=== PATIENT | female | born 1960 | race Caucasian/White ===

== ENCOUNTER 2017-08-13 18:50 | Inpatient (IN) | payer OTHER ==
[~2017-08-13] VITALS: Ht 170.2 cm; Wt 85.0 kg
[2017-08-13 19:01] VITALS: BP 146/87; PULSE 91; RESP 16; TEMP 98.6; O2SAT 98
--- NOTE | 2017-08-13 19:08 | PD ---
HPI Chief Complaint: Injury Time Seen by Provider: 19:00 Travel History International Travel<30 days: No Contact w/Intl Traveler<30days: No Traveled to known affect area: No History of Present Illness HPI 57-year-old female presents to the ED via EMS for evaluation of 10/10 left ankle pain after fall down one step at home today. Described as constant/ throbbing. Alleviated by morphine. Patient states that she simply misstepped. She has not been ambulatory since the accident. She endorses previous sprains of both ankles in the past. She states that she had breakfast at 10: 30. She is unsure if she had a snack after that but states that she is definitely not eaten since 2 PM. Patient is followed by Dr. Rodriguez in [facility]. She endorses a few episodes of esophageal spasm recently and has an upcoming endoscopy scheduled. [facility] Social History Tobacco Use: No Allergies-Medications (Allergen,Severity, Reaction): Coded Allergies: No Known Drug Allergies (Verified Allergy, Unknown, 08/13/17) Reported Meds & Prescriptions Reported Meds & Active Scripts Active Reported Synthroid (Levothyroxine Sodium) 125 Mcg Tab 125 Mcg PO DAILY Flexeril (Cyclobenzaprine HCl) 10 Mg Tab 10 Mg PO TID PRN Review of Systems Except as stated in HPI: all other systems reviewed are Neg Physical Exam Narrative GENERAL: Well-nourished, well-developed pleasant white female in no acute distress. SKIN: Focused skin assessment warm/dry. HEAD: Normocephalic. EYES: No scleral icterus. No injection or drainage. NECK: Supple, trachea midline. No JVD or lymphadenopathy. CARDIOVASCULAR: Regular rate and rhythm without murmurs, gallops, or rubs. RESPIRATORY: Breath sounds clear and equal bilaterally. No accessory muscle use. GASTROINTESTINAL: Abdomen soft, non-tender, nondistended. MUSCULOSKELETAL: No cyanosis, or edema. FOCUSED LEFT LOWER EXTREMITY EXAM: 2+ radial pulse. Patient is able to wiggle her toes. Sensation intact to light touch distally. There is visible deformity at the ankle joint. Cardboard splint is maintained pending x-rays. FOCUSED RIGHT LOWER EXTREMITY EXAM: 2+ radial pulse. Patient is able to wiggle toes. Flexion and extension of the ankle elicits pain in the top of the foot. Cap refill less than 2 seconds. Sensation intact to light touch distally. BACK: Nontender without obvious deformity. No CVA tenderness. Data Data Last Documented VS Vital Signs Date Time Temp Pulse Resp B/P (MAP) Pulse Ox O2 Delivery O2 Flow Rate FiO2 08/13/17 19:01 98.6 91 16 146/87 (106) 98 Orders Orders Ice/Cold Pack (08/13/17 19:02) Foot, Complete ([id number]) (08/13/17 19:02) Ice/Cold Pack (08/13/17 19:02) Iv Access Insert/Monitor (08/13/17 19:02) Ankle, Limited (Ap&Lat) (08/13/17 19:02) Complete Blood Count With Diff (08/13/17 19:54) Comprehensive Metabolic Panel (08/13/17 19:54) Urinalysis - C+S If Indicated (08/13/17 19:54) Ecg Monitoring (08/13/17 19:54) Oximetry (08/13/17 19:54) Morphine Inj (Morphine Inj) (08/13/17 20:00) Sodium Chloride 0.9% Flush (Ns Flush) (08/13/17 20:00) Electrocardiogram (08/13/17 19:54) Coag Profile (08/13/17 19:54) Splinting (08/13/17 ) Ondansetron Inj (Zofran Inj) (08/13/17 20:00) Admit Order (Ed Use Only) (08/13/17 20:12) Labs Laboratory Tests Test 08/13/17 20:00 White Blood Count 12.3 TH/MM3 Red Blood Count 4.36 MIL/MM3 Hemoglobin 13.9 GM/DL Hematocrit 41.1 % Mean Corpuscular Volume 94.3 FL Mean Corpuscular Hemoglobin 32.0 PG Mean Corpuscular Hemoglobin Concent 33.9 % Red Cell Distribution Width 13.2 % Platelet Count 314 TH/MM3 Mean Platelet Volume 7.5 FL Neutrophils (%) (Auto) 75.9 % Lymphocytes (%) (Auto) 17.1 % Monocytes (%) (Auto) 4.5 % Eosinophils (%) (Auto) 2.0 % Basophils (%) (Auto) 0.5 % Neutrophils # (Auto) 9.3 TH/MM3 Lymphocytes # (Auto) 2.1 TH/MM3 Monocytes # (Auto) 0.5 TH/MM3 Eosinophils # (Auto) 0.2 TH/MM3 Basophils # (Auto) 0.1 TH/MM3 CBC Comment DIFF FINAL Differential Comment Prothrombin Time 10.4 SEC Prothromb Time International Ratio 0.9 RATIO Activated Partial Thromboplast Time 24.7 SEC Blood Urea Nitrogen 14 MG/DL Creatinine 0.84 MG/DL Random Glucose 102 MG/DL Total Protein 7.2 GM/DL Albumin 3.8 GM/DL Calcium Level 8.3 MG/DL Alkaline Phosphatase 105 U/L Aspartate Amino Transf (AST/SGOT) 20 U/L Alanine Aminotransferase (ALT/SGPT) 23 U/L Total Bilirubin 0.5 MG/DL Sodium Level 139 MEQ/L Potassium Level 3.8 MEQ/L Chloride Level 106 MEQ/L Carbon Dioxide Level 23.0 MEQ/L Anion Gap 10 MEQ/L Estimat Glomerular Filtration Rate 70 ML/MIN MDM Medical Decision Making Medical Screen Exam Complete: Yes Emergency Medical Condition: Yes Differential Diagnosis Fracture versus dislocation versus contusion versus musculoskeletal pain versus other Narrative Course 57-year-old female presents to the ED via EMS for evaluation of 10/10 left ankle pain after fall down one step at home today. Described as constant/ throbbing. Alleviated by morphine. Patient states that she simply misstepped. She has not been ambulatory since the accident. She states that she had breakfast at 10:30. Patient is followed by Dr. Rodriguez in [facility]. She endorses a few episodes of esophageal spasm recently and has an upcoming endoscopy scheduled. She's never had any problems with anesthesia. Patient's hypertensive on presentation. Physical exam reveals a pleasant white female in no acute distress. She has a palpable DP pulse in the left leg and is able to wiggle the toes. There is visible deformity of the leg and it is in a cardboard splint. We'll leave this in place pending x-rays. IV was established. Patient was administered 4 mg morphine, 4 mg Zofran IV. Left ankle x-ray: Bimalleolar unstable left ankle fracture per my read. I spoke with Dr. Feliz by phone who plans surgery tomorrow. CBC, CMP, UA, coags, CXR, EKG ordered and pending. The orthotech was called to splint the ankle. I discussed the results of the workup with the patient who is agreeable to admission and evaluation by the orthopedist. I spoke with Dr. Desai who agrees to accept the patient to the medicine service. Please see orthopedic and medicine for disposition. Taylor Monzon Aug 13, 2017 19:08
[2017-08-13] MEDS ORDERED: LEVO.125 PO (19:12)
[2017-08-13] MEDS ORDERED: CYCL10TA PO (19:12)
[2017-08-13] MEDS ORDERED: ONDANSETRON HCL 4 MG/2 ML VIAL IV PUSH ONE (20:00)
[2017-08-13] MEDS ORDERED: SODIUM CHLORIDE 0.9% FLUSH 10 ML FLUSH IV FLUSH PRN ×2 (20:00→20:45)
[2017-08-13] MEDS ORDERED: MORPHINE SULFATE 4 MG/ML INJ IV PUSH ONE (20:00)
[2017-08-13 20:14] LABS: AUTOMATED NEUTROPHIL # 9.3 TH/MM3 (1.8-7.7); BASOPHIL # 0.1 TH/MM3 (0-0.2); BASOPHIL % 0.5 % (0.0-2.0); EOSINOPHIL # 0.2 TH/MM3 (0-0.4); HEMATOCRIT 41.1 % (35.0-46.0); HEMO FLAGS DIFF FINAL; LYMPH % 17.1 % (9.0-44.0); LYMPHOCYTE # 2.1 TH/MM3 (1.0-4.8); MEAN CELL VOLUME 94.3 FL (80.0-100.0); MEAN CORPUSCULAR HGB CONC 33.9 % (32.0-36.0); MONO % 4.5 % (0.0-8.0); NEUT % 75.9 % (16.0-70.0); PLATELET COUNT 314 TH/MM3 (150-450); RED BLOOD COUNT 4.36 MIL/MM3 (4.00-5.30); RED CELL DISTRIBUTION WIDTH 13.2 % (11.6-17.2); WHITE BLOOD COUNT 12.3 TH/MM3 (4.0-11.0)
[2017-08-13 20:22] LABS: ALT (GPT) 23 U/L (10-53); ANION GAP 10 MEQ/L (5-15); AST (GOT) 20 U/L (15-37); BLOOD UREA NITROGEN 14 MG/DL (7-18); CHLORIDE 106 MEQ/L (98-107); GLOMERULAR FILTRATION RATE 70 ML/MIN (>89); POTASSIUM 3.8 MEQ/L (3.5-5.1); SODIUM (NA) 139 MEQ/L (136-145)
[2017-08-13 20:25] LABS: ALKALINE PHOSPHATASE 105 U/L (45-117); TOTAL BILIRUBIN ADULT 0.5 MG/DL (0.2-1.0)
--- NOTE | 2017-08-13 20:28 | RADRPT ---
EXAM DATE/TIME: 08/13/2017 19:13 [facility] COMPARISON: No previous studies available for comparison. INDICATIONS : Left ankle pain after missing a step. MEDICAL HISTORY : None. SURGICAL HISTORY : None. ENCOUNTER: Initial ACUITY: 1 day PAIN SCORE: 5/10 LOCATION: Left anterior ankle. FINDINGS: There is fracture at the base of the medial malleolus and at the distal fibula at the lateral malleol us. It does appear the distal fibular fragment and the talus are mildly laterally subluxed in relatio nship to the distal tibia. CONCLUSION: Medial and lateral malleoli fractures as described above. Mina Burns MD on August 13, 2017 at 20:26 Board Certified Radiologist. This report was verified electronically.
[2017-08-13 20:34] LABS: APTT (PATIENT) 24.7 SEC (24.3-30.1); INTERNATIONAL NORMALIZED RATIO 0.9 RATIO; PROTHROMBIN TIME - PATIENT 10.4 SEC (9.8-11.6)
--- NOTE | 2017-08-13 20:38 | RADRPT ---
EXAM DATE/TIME: 08/13/2017 19:19 [facility] COMPARISON: No previous studies available for comparison. INDICATIONS : Right foot pain after missing a step. MEDICAL HISTORY : None. SURGICAL HISTORY : None. ENCOUNTER: Initial ACUITY: 1 day PAIN SCORE: 5/10 LOCATION: Right foot, dorsal surface. FINDINGS: Three view examination of the right foot demonstrates no soft tissue swelling, dislocation, or fractu re. The tarsal bones appear intact. The interphalangeal and metatarsophalangeal joints are intact. The calcaneus is intact. There is a small calcaneal spur at the plantar aponeurosis attachment sit e. Bony mineralization is normal. CONCLUSION: No acute disease. Mina Burns MD on August 13, 2017 at 20:36 Board Certified Radiologist. This report was verified electronically.
[2017-08-13] MEDS ORDERED: ACETAMINOPHEN 325 MG TAB PO PRN (20:45)
[2017-08-13] MEDS ORDERED: CYCLOBENZAPRINE HCL 10 MG TAB PO PRN (20:45)
[2017-08-13] MEDS ORDERED: LACTULOSE SYRUP 20 GM/30 ML CUP PO PRN (20:45)
[2017-08-13] MEDS ORDERED: NALOXONE HCL 0.4 MG/ML AMP IV PUSH PRN (20:45)
[2017-08-13] MEDS ORDERED: BISACODYL 10 MG SUPP RECTAL PRN (20:45)
[2017-08-13] MEDS ORDERED: SENNOSIDES 8.6 MG TAB PO PRN (20:45)
[2017-08-13] MEDS ORDERED: PANTOPRAZOLE SOD 40 MG DELAYED RELEASE TAB PO ONE (21:15)
[2017-08-13] MEDS ORDERED: RESP: ALBUTEROL CONC 2.5 MG/0.5 ML NEB NEB PRN (21:15)
[2017-08-13] MEDS ORDERED: DOCUSATE SODIUM 100 MG CAP PO ONE (21:30)
[2017-08-13 21:35] VITALS: BP 130/76
[2017-08-13 21:37] VITALS: BP 133/80; PULSE 85; RESP 18; TEMP 97.6; O2SAT 98
[2017-08-13] MEDS ORDERED: ACYC200C66 PO (21:37)
--- NOTE | 2017-08-13 21:47 | HHI.HP ---
HPI Service [facility] Primary Care Physician Unknown Admission Diagnosis left ankle fracture Diagnoses: (1) Closed fracture of malleolus of left ankle (2) Hypothyroidism (3) Chronic back pain (4) GERD (gastroesophageal reflux disease) (5) History of DVT (deep vein thrombosis) Chief Complaint: Left ankle pain following a fall at home Travel History International Travel<30 Days: No Contact w/Intl Traveler <30 Da: No Traveled to Known Affected Are: No History of Present Illness Mrs. Ny is a very pleasant female with a history of postoperative lower extremity DVT, hypothyroidism, chronic lung disease (sounds like mild reactive airway disease vs mild interstitial lung disease), gastroesophageal reflux disease with possible stricture versus esophageal spasm being worked up as an outpatient (EGD to be done within next two weeks) who presented to the emergency room following a fall at home with medial and lateral left malleoli fractures identified in the emergency department (xray personally reviewed and agree with radiologist findings). She is being admitted for orthopedic surgical repair and [facility] were consulted to manage other medical conditions prior to surgery in the morning. Patient states that she was at home and was walking down a step and missed her footing and fell with resulting severe left ankle pain, the dictations, and inability to bear weight. Her pain is currently described as sharp and worse with movement. It is rated 7 out of 10 but she is currently undergoing left lower extremity splinting during my visit. She does report pain relief with when necessary morphine. Denies any recent fever, chills, chest pain, shortness of breath, cough, cold symptoms, nausea, vomiting, or diarrhea. She does report chronic constipation and states that she also hurt her right foot during a fall. X-ray of the right foot is negative. Review of Systems Except as stated in HPI: all other systems reviewed are Neg Past Family Social History Past Medical History Left lower extremity postoperative DVT with 3 months of Coumadin therapy Hypothyroidism Chronic back pain GERD with esophageal stricture vs esophageal spasm pending EGD within the next 2 weeks outpatient Lifelong chronic lung disease - patient states she uses an inhaler as needed for shortness of breath/wheezing for "weak lungs" - from history sounds like interstitial lung disease versus reactive airway disease Left collarbone fracture Chronic constipation Uterine Fibroids s/p hysterectomy (did not have oophorectomy) Multiple episodes of pneumonia . Past Surgical History Multiple liposuction surgeries Tummy tuck Breast reduction Laparoscopic hysterectomy . Reported Medications Synthroid (Levothyroxine Sodium) 125 Mcg PO DAILY Flexeril (Cyclobenzaprine HCl) 10 Mg PO TID PRN back pain Albuterol Nebulizer 2 inhalations q4h PRN sob/wheezing Nexium 40 mg p.o. qd Allergies: Coded Allergies: No Known Drug Allergies (Verified Allergy, Unknown, 08/13/17) Active Ordered Medications Current Medications Morphine Sulfate (Morphine Inj) 4 mg ONCE ONCE IV PUSH ; Start 08/13/17 at 20: 00; Stop 08/13/17 at 20:01; Status DC Sodium Chloride (NS Flush) 2 ml UNSCH PRN IV FLUSH FLUSH AFTER USING IV ACCESS ; Start 08/13/17 at 20:00; Stop 08/13/17 at 21:10; Status DC Ondansetron HCl (Zofran Inj) 4 mg ONCE ONCE IV PUSH ; Start 08/13/17 at 20:00 ; Stop 08/13/17 at 20:01; Status DC Sodium Chloride (NS Flush) 2 ml UNSCH PRN IV FLUSH FLUSH AFTER USING IV ACCESS ; Start 08/13/17 at 20:45 Sodium Chloride (NS Flush) 2 ml BID IV FLUSH ; Start 08/13/17 at 21:00 Acetaminophen (Tylenol) 650 mg Q4H PRN PO TEMP > 100.4; Start 08/13/17 at 20: 45 Naloxone HCl (Narcan Inj) 0.4 mg UNSCH PRN IV PUSH SEE LABEL COMMENTS; Start 08/13/17 at 20:45 Magnesium Hydroxide (Milk Of Magnesia Liq) 30 ml Q12H PRN PO Mild constipation ; Start 08/13/17 at 20:45 Sennosides (Senokot) 17.2 mg Q12H PRN PO Moderate constipation; Start at 20:45 Bisacodyl (Dulcolax Supp) 10 mg DAILY PRN RECTAL SEVERE CONSITIPATION; Start 08/13/17 at 20:45 Lactulose (Lactulose Liq) 30 ml DAILY PRN PO SEVERE CONSITIPATION; Start 08/13 at 20:45 Morphine Sulfate (Morphine Inj) 3 mg Q3H PRN IV PUSH pain > 5; Start 08/13/17 at 20:45 Cyclobenzaprine HCl (Flexeril) 10 mg TID PRN PO BACK PAIN; Start 08/13/17 at 20:45 Levothyroxine Sodium (Synthroid) 125 mcg DAILY@0600 PO ; Start 08/14/17 at 06: 00 Pantoprazole Sodium (Protonix) 40 mg ONCE ONCE PO ; Start 08/13/17 at 21:15; Stop 08/13/17 at 21:16; Status UNV Pantoprazole Sodium (Protonix) 40 mg DAILY PO ; Start 08/14/17 at 09:00; Status UNV Albuterol Sulfate (Albuterol Concentrated Neb) 2.5 mg Q2HR NEB PRN NEB wheezing /shortness of breath; Start 08/13/17 at 21:15; Status UNV . Family History Father from myocardial infarction at age 59, first CABG age 56 Mother from congestive heart failure age mid 80s No family history of anesthesia reactions She had an uncle who from complications related to a left leg DVT . Social History Tobacco: Never smoked Alcohol: Socially drinks alcohol; denies daily use Illicit Drugs: Denies every using . Physical Exam Vital Signs Vital Signs Date Time Temp Pulse Resp B/P (MAP) Pulse Ox O2 Delivery O2 Flow Rate FiO2 08/13/17 19:01 98.6 91 16 146/87 (106) 98 Physical Exam GENERAL: This is a very pleasant, well-nourished, well-developed patient, in no apparent distress. SKIN: No rashes, ecchymoses or lesions. Cool and dry. HEAD: Atraumatic. Normocephalic. EYES: No scleral icterus. No injection or drainage. ENT: Nose without bleeding, purulent drainage. NECK: Trachea midline. No JVD or lymphadenopathy. CARDIOVASCULAR: Regular rate and rhythm without murmurs, gallops, or rubs. RESPIRATORY: Clear to auscultation. Breath sounds equal bilaterally. No wheezes , rales, or rhonchi. GASTROINTESTINAL: Abdomen soft, non-tender, nondistended. No guarding. MUSCULOSKELETAL: Extremities without clubbing, cyanosis. No calf tenderness. Left ankle painful with movement. Patient is able to wiggle her toes, capillary refill is less than 3 seconds, and sensation is intact to toes. NEUROLOGICAL: Awake and alert. Motor and sensory grossly within normal limits. Normal speech. . Laboratory Laboratory Tests Test 08/13/17 20:00 White Blood Count 12.3 Red Blood Count 4.36 Hemoglobin 13.9 Hematocrit 41.1 Mean Corpuscular Volume 94.3 Mean Corpuscular Hemoglobin 32.0 Mean Corpuscular Hemoglobin Concent 33.9 Red Cell Distribution Width 13.2 Platelet Count 314 Mean Platelet Volume 7.5 Neutrophils (%) (Auto) 75.9 Lymphocytes (%) (Auto) 17.1 Monocytes (%) (Auto) 4.5 Eosinophils (%) (Auto) 2.0 Basophils (%) (Auto) 0.5 Neutrophils # (Auto) 9.3 Lymphocytes # (Auto) 2.1 Monocytes # (Auto) 0.5 Eosinophils # (Auto) 0.2 Basophils # (Auto) 0.1 CBC Comment DIFF FINAL Differential Comment Prothrombin Time 10.4 Prothromb Time International Ratio 0.9 Activated Partial Thromboplast Time 24.7 Blood Urea Nitrogen 14 Creatinine 0.84 Random Glucose 102 Total Protein 7.2 Albumin 3.8 Calcium Level 8.3 Alkaline Phosphatase 105 Aspartate Amino Transf (AST/SGOT) 20 Alanine Aminotransferase (ALT/SGPT) 23 Total Bilirubin 0.5 Sodium Level 139 Potassium Level 3.8 Chloride Level 106 Carbon Dioxide Level 23.0 Anion Gap 10 Estimat Glomerular Filtration Rate 70 Result Diagram: 08/13/17199908/13/17 2000 Imaging Last Impressions Foot X-Ray 08/13/171901 Signed Impressions: Service Date/Time: Sunday, August 13, 2017 19:19 - CONCLUSION: No acute disease. Mina Burns MD Ankle X-Ray [id number]/13/171901 Signed Impressions: Service Date/Time: Sunday, August 13, 2017 19:13 - CONCLUSION: Medial and lateral malleoli fractures as described above. Mina Burns MD . Capemigdioi VTE Risk Assessment Eddii VTE Risk Assessment: Mod/High Risk (score >= 2) Caprini Risk Assessment Model Point Value = 1 Point Value = 2 Point Value = 3 Point Value = 5 Age 41-60 Minor surgery BMI > 25 kg/m2 Swollen legs Varicose veins or History of unexplained or recurrent spontaneous Oral contraceptives or hormone replacement Sepsis (< 1 month) Serious lung disease, including pneumonia (< 1 month) Abnormal pulmonary function Acute myocardial infarction Congestive heart failure (< 1 month) History of inflammatory bowel disease Medical patient at bed rest Age 61-74 Arthroscopic surgery Major open surgery (> 45 min) Laparoscopic surgery (> 45 min) Malignancy Confined to bed (> 72 hours) Immobilizing plaster cast Central venous access Age >= 75 History of VTE Family history of VTE Factor V Leiden Prothrombin [id number] Lupus anticoagulant Anticardiolipin antibodies Elevated serum homocysteine Heparin-induced thrombocytopenia Other congenital or acquired thrombophilia Stroke (< 1 month) Elective arthroplasty Hip, pelvis, or leg fracture Acute spinal cord injury (< 1 month) Prophylaxis Regimen Total Risk Factor Score Risk Level Prophylaxis Regimen 0-1 Low Early ambulation 2 Moderate Order ONE of the following: *Sequential Compression Device (SCD) *Heparin 5000 units SQ BID 3-4 Higher Order ONE of the following medications: *Heparin 5000 units SQ TID *Enoxaparin/Lovenox 40 mg SQ daily (WT < 150 kg, CrCl > 30 mL/min) *Enoxaparin/Lovenox 30 mg SQ daily (WT < 150 kg, CrCl > 10-29 mL/min) *Enoxaparin/Lovenox 30 mg SQ BID (WT < 150 kg, CrCl > 30 mL/min) AND/OR *Sequential Compression Device (SCD) 5 or more Highest Order ONE of the following medications: *Heparin 5000 units SQ TID (Preferred with Epidurals) *Enoxaparin/Lovenox 40 mg SQ daily (WT < 150 kg, CrCl > 30 mL/min) *Enoxaparin/Lovenox 30 mg SQ daily (WT < 150 kg, CrCl > 10-29 mL/min) *Enoxaparin/Lovenox 30 mg SQ BID (WT < 150 kg, CrCl > 30 mL/min) AND *Sequential Compression Device (SCD) Assessment and Plan Problem List: (1) Closed fracture of malleolus of left ankle ICD Code: S82.892A - Other fracture of left lower leg, initial encounter for closed fracture (2) Hypothyroidism ICD Code: E03.9 - Hypothyroidism, unspecified (3) GERD (gastroesophageal reflux disease) ICD Code: K21.9 - Gastro-esophageal reflux disease without esophagitis (4) Chronic back pain ICD Code: M54.9 - Dorsalgia, unspecified; G89.29 - Other chronic pain (5) History of DVT (deep vein thrombosis) ICD Code: Z86.718 - Personal history of other venous thrombosis and embolism Assessment and Plan Mrs. Ny is a very pleasant female with a history of postoperative lower extremity DVT, hypothyroidism, chronic lung disease (sounds like mild reactive airway disease vs mild interstitial lung disease), gastroesophageal reflux disease with possible stricture versus esophageal spasm being worked up as an outpatient (EGD to be done within next two weeks) who presented to the emergency room following a fall at home with medial and lateral left malleoli fractures identified in the emergency department (xray personally reviewed and agree with radiologist findings). She is being admitted for orthopedic surgical repair and [facility] hospitalists were consulted to manage other medical conditions prior to surgery in the morning. Left ankle fracture - Left ankle x-ray shows medial and lateral left malleoli fractures identified in the emergency department (xray personally reviewed and agree with radiologist findings) - Orthopedic surgery consulted - Morphine 3 mg IV every 3 hours as needed for pain greater than 5 Hypothyroidism - Home Synthroid restarted Chronic back pain - Home PRN Flexeril restarted Chronic constipation - Bowel regimen has been ordered - Colace 100 mg BID Chronic lung disease - mild reactive airway disease vs mild interstitial lung disease - uses albuterol inhaler PRN at home but hasn't used in a long time but is prone to developing pneumonia - will add PRN albuterol nebulizer to be used for wheezing/SOB - instructed patient she will need to use the incentive spirometer post- operatively religiously - she is in agreement GERD - Protonix 40 mg p.o. qd (in lieu of home Nexium) DVT prophylaxis - patient with a history of post op LLE DVT (took Coumadin for 3 months for this - 20 years ago) - per orthopedics post-op, SCDs/TEDs to nonoperative leg for now Discussed Condition With Dr. Desai, JUDE, and patient . Physician Certification 2 Midnight Certification Type: Admission for Inpatient Services Order for Inpatient Services The services are ordered in accordance with Medicare regulations or non- Medicare payer requirements, as applicable. In the case of services not specified as inpatient-only, they are appropriately provided as inpatient services in accordance with the 2-midnight benchmark. Estimated LOS (days): 2 days is the estimated time the patient will need to remain in the hospital, assuming treatment plan goals are met and no additional complications. Post-Hospital Plan: Home Franca Cid Aug 13, 2017 21:47
[2017-08-13] MEDS ORDERED: METOPROLOL TARTRATE 25 MG TAB PO PRN (22:00)
[2017-08-13] MEDS ORDERED: CHLORHEXIDINE GLUCONATE 2 % 1 PACK (2 CLOTHS) TOPICAL PRN (22:00)
[2017-08-13] MEDS ORDERED: POVIDONE IODINE 5% (ANTISEPSIS KIT) 4 APPLICATIONS EACH NARE PRN (22:00)
[2017-08-13] MEDS ORDERED: LACTATED RINGER'S 1000 ML IV PRN (22:00)
[2017-08-13] MEDS ORDERED: SODIUM CHLORID 0.9% 500 ML IV PRN (22:00)
[2017-08-13] MEDS ORDERED: ACYCLOVIR 200 MG CAP PO ONE (22:15)
[2017-08-13] MEDS: SODIUM CHLORIDE 0.9% FLUSH 10 ML FLUSH IV FLUSH SCH (23:19)
[2017-08-13 23:20] VITALS: BP 136/84; PULSE 86; RESP 18; TEMP 98.1; O2SAT 99
[2017-08-13] MEDS: MORPHINE SULFATE 2 MG/ML INJ IV PUSH PRN (23:21)
[2017-08-14] MEDS: MORPHINE SULFATE 2 MG/ML INJ IV PUSH PRN ×3 (02:41→09:46)
[2017-08-14] MEDS: LEVOTHYROXINE SODIUM 125 MCG TAB PO SCH (05:45)
[2017-08-14] MEDS: ACYCLOVIR 200 MG CAP PO SCH ×5 (05:45→23:28)
[2017-08-14 05:48] VITALS: BP 97/66; PULSE 82; RESP 17; TEMP 97.2; O2SAT 98
[2017-08-14] MEDS ORDERED: ACYCLOVIR 200 MG CAP PO SCH (06:00)
[2017-08-14 08:00] VITALS: BP 112/71; PULSE 91; RESP 17; TEMP 96.8; O2SAT 95
[2017-08-14] MEDS: SODIUM CHLORIDE 0.9% FLUSH 10 ML FLUSH IV FLUSH SCH (08:43)
[2017-08-14] MEDS: PANTOPRAZOLE SOD 40 MG DELAYED RELEASE TAB PO SCH (08:44)
[2017-08-14 08:49] LABS: AUTOMATED NEUTROPHIL # 6.2 TH/MM3 (1.8-7.7); BASOPHIL % 0.4 % (0.0-2.0); EOSINOPHIL # 0.3 TH/MM3 (0-0.4); EOSINOPHIL % 3.7 % (0.0-4.0); HEMATOCRIT 38.1 % (35.0-46.0); HEMO FLAGS DIFF FINAL; LYMPH % 23.2 % (9.0-44.0); LYMPHOCYTE # 2.2 TH/MM3 (1.0-4.8); MEAN CORPUSCULAR HEMOGLOBIN 32.8 PG (27.0-34.0); MEAN CORPUSCULAR HGB CONC 34.6 % (32.0-36.0); MONO % 6.6 % (0.0-8.0); NEUT % 66.1 % (16.0-70.0); PLATELET COUNT 274 TH/MM3 (150-450); RED BLOOD COUNT 4.01 MIL/MM3 (4.00-5.30); WHITE BLOOD COUNT 9.3 TH/MM3 (4.0-11.0)
[2017-08-14] MEDS ORDERED: DOCUSATE SODIUM 100 MG CAP PO SCH (09:00)
[2017-08-14] MEDS ORDERED: INFLUENZA VIRUS VACCINE (QUADRIVALENT) 0.5 ML SYR IM ONE (09:00)
[2017-08-14] MEDS ORDERED: PNEUMOCOCCAL POLYVALENT INJ 25 MCG/0.5 ML SYR IM ONE (09:00)
[2017-08-14 09:14] LABS: BICARBONATE 25.7 MEQ/L (21.0-32.0); POTASSIUM 3.8 MEQ/L (3.5-5.1)
[2017-08-14] MEDS ORDERED: GENTAMICIN SULFATE 80 MG/2 ML VIAL ONE (10:10)
[2017-08-14] MEDS ORDERED: APREPITANT 40 MG CAP ONE (10:33)
[2017-08-14] MEDS ORDERED: ACETAMINOPHEN 1000 MG/100 ML 100 ML IV ONE (10:37)
[2017-08-14] MEDS ORDERED: FAMOTIDINE 20 MG/2 ML VIAL ONE (10:37)
[2017-08-14] MEDS ORDERED: ceFAZolin 2 GM PREMIX 50 ML ONE (10:51)
[2017-08-14] MEDS ORDERED: PROPOFOL 200 MG/20 ML AMP IV ONE (12:00)
[2017-08-14] MEDS ORDERED: ONDANSETRON HCL 4 MG/2 ML VIAL IV PUSH ONE (12:00)
[2017-08-14] MEDS ORDERED: DEXAMETHASONE SOD PHOS 4 MG/ML VIAL IV ONE (12:00)
[2017-08-14] MEDS ORDERED: NEOSTIGMINE 3 MG/3 ML SYR IV ONE (12:00)
[2017-08-14] MEDS ORDERED: MIDAZOLAM HCL 2 MG/2 ML VIAL IV ONE (12:00)
[2017-08-14] MEDS ORDERED: PHENYLEPH/NS 1000 MCG/10 ML SYR IV ONE (12:00)
[2017-08-14] MEDS ORDERED: LIDOCAINE HCL 1% PF 5 ML SYRINGE OTHER ONE (12:00)
[2017-08-14] MEDS ORDERED: ROCURONIUM INJ 50 MG/5 ML SYRINGE IV PUSH ONE (12:00)
[2017-08-14] MEDS ORDERED: GLYCOPYRROLATE 1 MG/5 ML SYRINGE IV PUSH ONE (12:00)
[2017-08-14] MEDS: LACTATED RINGER'S 1000 ML INJ 1,000 ML IV SCH ×2 (12:02→12:30)
--- NOTE | 2017-08-14 12:07 | PD.CONS ---
HPI Service Orthopedic Surgeons Consult Requested By Reason for Consult Unstable left ankle fracture Primary Care Physician Unknown Admission Diagnosis left ankle fracture Diagnoses: (1) Closed fracture of malleolus of left ankle (2) Hypothyroidism (3) GERD (gastroesophageal reflux disease) (4) Chronic back pain (5) History of DVT (deep vein thrombosis) Chief Complaint: Left ankle pain History of Present Illness This patient is a 57-year-old female who missed a step at her home and had an injury to her left ankle. She indicated that she fell and had an obvious deformity of the left ankle. She pulled it in it relocated the ankle hearing a "crunching". She was unable to bear weight. She was brought to [facility] emergency room and evaluated and treated. She was admitted to the medical service and I have been asked see her in consultation regarding the injury to her left ankle Past Family Social History Past Medical History Left lower extremity postoperative DVT with 3 months of Coumadin therapy Hypothyroidism Chronic back pain GERD with esophageal stricture vs esophageal spasm pending EGD within the next 2 weeks outpatient Lifelong chronic lung disease - patient states she uses an inhaler as needed for shortness of breath/wheezing for "weak lungs" - from history sounds like interstitial lung disease versus reactive airway disease Left collarbone fracture Chronic constipation Uterine Fibroids s/p hysterectomy (did not have oophorectomy) Multiple episodes of pneumonia . Past Surgical History Multiple liposuction surgeries Tummy tuck Breast reduction Laparoscopic hysterectomy . Allergies: Coded Allergies: nickel (Verified Allergy, Severe, rash, 08/14/17) No Known Drug Allergies (Verified Allergy, Unknown, 08/13/17) Active Ordered Medications Current Medications Medications (Trade) Dose Ordered Sig/Bkaari Route Start Time Stop Time Status Last Admin (NS Flush) 2 ml UNSCH PRN IV FLUSH 08/13/17 20:45 (NS Flush) 2 ml BID IV FLUSH 08/13/17 21:00 08/14/17 08:43 (Tylenol) 650 mg Q4H PRN PO 08/13/17 20:45 (Narcan Inj) 0.4 mg UNSCH PRN IV PUSH 08/13/17 20:45 (Milk Of Magnesia Liq) 30 ml Q12H PRN PO 08/13/17 20:45 (Senokot) 17.2 mg Q12H PRN PO 08/13/17 20:45 (Dulcolax Supp) 10 mg DAILY PRN RECTAL 08/13/17 20:45 (Lactulose Liq) 30 ml DAILY PRN PO 08/13/17 20:45 (Morphine Inj) 3 mg Q3H PRN IV PUSH 08/13/17 20:45 08/14/17 09:46 (Flexeril) 10 mg TID PRN PO 08/13/17 20:45 (Synthroid) 125 mcg DAILY@0600 PO 08/14/17 06:00 08/14/17 05:45 (Protonix) 40 mg DAILY PO 08/14/17 09:00 (Albuterol Concentrated Neb) 2.5 mg Q2HR NEB PRN NEB 08/13/17 21:15 (Colace) 100 mg BID PO 08/14/17 09:00 Lactated Ringer's 1,000 ml @ 30 mls/hr Q24H PRN IV 08/13/17 22:00 08/16/17 21:59 Sodium Chloride 500 ml @ 30 mls/hr [id number] PRN IV 08/13/17 22:00 08/16/17 21:59 (Lopressor) 25 mg [employer]ING [employer]PERVISOR PRN PO 08/13/17 22:00 08/16/17 21:59 (Betadine 5% Antisepsis Kit) 1 applic [employer]ING SUPERVISOR PRN EACH NARE 08/13/17 22:00 08/16/17 21:59 (Chlorhexidine 2% Cloth) 3 pack [employer]PER[employer] PRN TOPICAL 08/13/17 22:00 08/16/17 21:59 (Zovirax) 200 mg 5 TIMES A DAY PO 08/14/17 06:00 08/14/17 05:45 (Flu (Quadrivalent) Vaccine Inj) 0.5 ml ONCE ONCE IM 08/15/17 09:00 08/15/17 09:01 (Pneumovax-23 Inj) 25 mcg ONCE ONCE IM 08/15/17 09:00 08/15/17 09:01 Reported Meds & Active Scripts Active Reported Acyclovir 200 Mg Cap 500 Mg PO 5 TIMES A DAY Synthroid (Levothyroxine Sodium) 125 Mcg Tab 125 Mcg PO DAILY Flexeril (Cyclobenzaprine HCl) 10 Mg Tab 10 Mg PO TID PRN Family History Father from myocardial infarction at age 59, first CABG age 56 Mother from congestive heart failure age mid 80s No family history of anesthesia reactions She had an uncle who from complications related to a left leg DVT . Social History Tobacco: Never smoked Alcohol: Socially drinks alcohol; denies daily use Illicit Drugs: Denies every using . Physical Exam Vital Signs Vital Signs Date Time Temp Pulse Resp B/P (MAP) Pulse Ox O2 Delivery O2 Flow Rate FiO2 08/14/17 10:00 16 08/14/17 08:48 Room Air 08/14/17 08:00 96.8 91 17 112/71 (85) 95 08/14/17 05:48 97.2 82 17 97/66 (76) 98 08/13/17 23:20 98.1 86 18 136/84 (101) 99 08/13/17 21:43 Room Air 08/13/17 21:37 97.6 85 18 133/80 (97) 98 08/13/17 21:35 80 16 130/76 (94) 98 08/13/17 19:01 98.6 91 16 146/87 (106) 98 Physical Exam She is lying in bed and fairly comfortable. HEENT: Normocephalic atraumatic pupils equal round reactive. NECK: Supple. No abnormal masses. Full range of motion. CHEST: Clear to auscultation with no rales or rhonchi's or wheezes. HEART: Regular rate and rhythm. No murmurs. ABDOMEN: Soft, nontender, no masses. Normal active bowel sounds. GENITOURINARY: Deferred MUSCULOSKELETAL: She is in a splint. She wiggles toes. No obvious swelling of the dorsum of the foot or toes. Sensation is normal. The refill satisfactory. Laboratory Laboratory Tests Test 08/13/17 20:00 08/14/17 07:40 White Blood Count 12.3 9.3 Red Blood Count 4.36 4.01 Hemoglobin 13.9 13.2 Hematocrit 41.1 38.1 Mean Corpuscular Volume 94.3 95.0 Mean Corpuscular Hemoglobin 32.0 32.8 Mean Corpuscular Hemoglobin Concent 33.9 34.6 Red Cell Distribution Width 13.2 13.0 Platelet Count 314 274 Mean Platelet Volume 7.5 7.5 Neutrophils (%) (Auto) 75.9 66.1 Lymphocytes (%) (Auto) 17.1 23.2 Monocytes (%) (Auto) 4.5 6.6 Eosinophils (%) (Auto) 2.0 3.7 Basophils (%) (Auto) 0.5 0.4 Neutrophils # (Auto) 9.3 6.2 Lymphocytes # (Auto) 2.1 2.2 Monocytes # (Auto) 0.5 0.6 Eosinophils # (Auto) 0.2 0.3 Basophils # (Auto) 0.1 0.0 CBC Comment DIFF FINAL DIFF FINAL Differential Comment Prothrombin Time 10.4 Prothromb Time International Ratio 0.9 Activated Partial Thromboplast Time 24.7 Blood Urea Nitrogen 14 11 Creatinine 0.84 0.75 Random Glucose 102 97 Total Protein 7.2 Albumin 3.8 Calcium Level 8.3 8.4 Alkaline Phosphatase 105 Aspartate Amino Transf (AST/SGOT) 20 Alanine Aminotransferase (ALT/SGPT) 23 Total Bilirubin 0.5 Sodium Level 139 138 Potassium Level 3.8 3.8 Chloride Level 106 104 Carbon Dioxide Level 23.0 25.7 Anion Gap 10 8 Estimat Glomerular Filtration Rate 70 80 Result Diagram: 08/14/17 0740 08/14/17 0740 Imaging Review of x-rays and review of the radiology interpretation shows evidence of an unstable left bimalleolar ankle fracture Assessment & Plan Assessment and Plan Bimalleolar left ankle fracture PLAN: Open treatment with fixation left ankle fracture with plates and screws. There is a remote possibility that she may need an external fixator if there is significant swelling. Consent: There are risks with this injury and surgery including infection bleeding loss of motion continued pain and need for further surgery neurologic or vascular injury. We plan on surgical treatment today Tyron Keyes MD Aug 14, 2017 12:07
--- NOTE | 2017-08-14 12:11 | PD.OP ---
cc: Tyron Keyes MD Operative Report Date of Surgery: Aug 14, 2017 Preoperative Diagnosis: Left ankle bimalleolar fracture Postoperative Diagnosis: Same. Significant fracture blisters Procedure: Closed reduction left ankle with placement of external fixator left ankle and foot Anesthesia: Gen. Surgeon: Tyron Keyes Brass Finisher(s): SANRDA Paulson Operation and Findings: EBL: Minimal cc INDICATION: Patient is a 57-year-old female who fell yesterday tripping over a step at her home. She has an unstable bimalleolar fracture. She presents for surgical treatment NOTE: Lisy Paulson PA-C was present for the entire surgical procedure as my engineering inspection assistant. In my medical opinion her skill and care was necessary for the proper management of this patient. PROCEDURE: The patient was brought to the operating room and anesthetized in the supine position. The splint was taken down over the left leg and she had a very large fracture blister anterior and lateral extending just above the ankle measuring approximately 12 x 4 cm. The ankle was very swollen. We visualized this under fluoroscopy. This is a very unstable fracture. This had the appearance of her fracture dislocation that had relocated. I spoke with the on the phone. He agreed to proceeding forward with external fixation as opposed internal fixation allowing this patient to heal her soft tissue envelope. I explained to the patient that the risks of infection and wound breakdown at this point outweigh the potential benefits of trying internal fixation early. He agreed to proceeding forward with external fixation and delayed internal fixation. A timeout was done. The left leg was scrubbed with alcohol followed by Hibiclens followed by ChloraPrep and draped sterilely. Antibiotics were given within 1 hour time window. Under fluoroscopy percutaneous incisions were made anteriorly. Using the Orthofix system, 2 bicortical pins were placed along the shaft of the tibia. Going from medial to lateral incision was made and soft tissue dissection was allowed for visualization of the calcaneus where a trans-calcaneal pin was placed in the proper location. A separate pin was placed to the proximal first metatarsal. This was then attached the proper clamps and rods. The fracture was brought into reduced position and held. The ankle was held at neutral. The wounds were irrigated. The pins were then covered with sterile dressing. The patient was awakened and taken to the recovery room in satisfactory condition. FINDINGS: This was an unstable ankle fracture dislocation. An external fixator was necessary in order to avoid comp location of wound dehiscence and infection. She will need delayed internal fixation probably in 7-14 days Tyron Keyes MD Aug 14, 2017 12:11
[2017-08-14] MEDS ORDERED: DO NOT ADM ANY ANTICOAGULANT DRUGS PRN (12:12)
[2017-08-14] MEDS ORDERED: HYDR-3516 PO (12:13)
[2017-08-14] MEDS ORDERED: ENOX40P SQ (12:13)
[2017-08-14] MEDS ORDERED: ONDANSETRON HCL 4 MG/2 ML VIAL IVP PRN (12:15)
[2017-08-14] MEDS ORDERED: NALOXONE HCL 0.4 MG/ML AMP IV PUSH PRN (12:15)
[2017-08-14] MEDS ORDERED: SODIUM CHLORIDE 0.9% FLUSH 5 ML FLUSH IVF PRN (12:15)
[2017-08-14] MEDS ORDERED: MORPHINE SULFATE 8 MG/ML INJ IV PUSH PRN (12:15)
[2017-08-14] MEDS ORDERED: MAGNESIUM HYDROXIDE SUSP 30 ML CUP PO PRN (12:15)
[2017-08-14] MEDS ORDERED: Post-op Orders (for Pharmacy) MISC XX ONE (12:15)
[2017-08-14] MEDS ORDERED: MORPHINE SULFATE 30 MG/30 ML PCA IV SCH (12:15)
[2017-08-14] MEDS ORDERED: diphenhydrAMINE HCL 25 MG CAP PO PRN (12:15)
[2017-08-14] MEDS ORDERED: ACETAMINOPHEN/HYDROcodone 325 MG/5 MG TAB PO PRN (12:15)
[2017-08-14] MEDS: CALCIUM/VITAMIN D 250 MG/125 U TAB PO SCH ×2 (13:00→17:23)
--- NOTE | 2017-08-14 13:17 | RADRPT ---
EXAM DATE/TIME: 08/14/2017 11:44 [place] COMPARISON: ANKLE LEFT LIMITED (AP&LAT), August 13, 2017, 19:13. INDICATIONS : Ex fix placement left ankle. MEDICAL HISTORY : Fractures left ankle. SURGICAL HISTORY : None. ENCOUNTER: Initial ACUITY: 1 day PAIN SCORE: Non-responsive. LOCATION: Left Ankle. FINDINGS: External fixation device is noted with screws located in the tibia and first metatarsal. Acute fractu res involving the distal tibia and fibula are again identified. CONCLUSION: Status post external fixation device placement which appears to be adequate in positi on for fixation of distal tibial and fibular fractures. Jerome Yang MD on August 14, 2017 at 13:12 Board Certified Radiologist. This report was verified electronically.
[2017-08-14] MEDS: PCA - TOTAL MG MORPHINE DELIVERED PER SHIFT SCH ×2 (13:27→22:00)
[2017-08-14 16:00] VITALS: BP 107/69; PULSE 91; RESP 18; TEMP 96.6; O2SAT 95
--- NOTE | 2017-08-14 16:09 | EKG ---
Date Performed: 08/13/2017 Time Performed: 20:32:55 PTAGE: 57 years EKG: Sinus rhythm WITH MARKED SINUS ARRHYTHMIA LOW QRS VOLTAGE IN PRECORDIAL LEADS INCOMPLETE RIGHT BUNDLE BRANCH BLOC K BORDERLINE ECG NO PREVIOUS TRACING DOCTOR: Tonia Lee Interpretating Date/Time 08/14/2017 16:05:47
[2017-08-14 17:03] VITALS: O2SAT 95
[2017-08-14 19:15] VITALS: BP 110/62; PULSE 89; RESP 18; TEMP 97.2; O2SAT 97
[2017-08-14] MEDS: SODIUM CHLORIDE 0.9% FLUSH 5 ML FLUSH IVF SCH (21:00)
[2017-08-14] MEDS: DOCUSATE SODIUM 50 MG/SENNA 8.6 MG TAB PO SCH (23:28)
[2017-08-14] MEDS ORDERED: ZOLPIDEM TARTRATE 5 MG TAB PO ONE ×2 (23:30)
[2017-08-14 23:32] VITALS: BP 92/60; PULSE 79; RESP 17; TEMP 96.8; O2SAT 94
[2017-08-15] MEDS: ENOXAPARIN SODIUM 40 MG/0.4 ML SYRINGE SQ SCH (00:13)
[2017-08-15 03:42] VITALS: BP 91/58; PULSE 77; RESP 17; TEMP 96.7; O2SAT 94
[2017-08-15] MEDS: PCA - TOTAL MG MORPHINE DELIVERED PER SHIFT SCH ×2 (06:00→12:56)
[2017-08-15] MEDS: ACYCLOVIR 200 MG CAP PO SCH ×5 (06:21→22:17)
[2017-08-15] MEDS: LEVOTHYROXINE SODIUM 125 MCG TAB PO SCH (06:21)
[2017-08-15 08:00] VITALS: BP 109/70; PULSE 72; RESP 18; TEMP 98.3; O2SAT 97
[2017-08-15] MEDS: LACTATED RINGER'S 1000 ML INJ 1,000 ML IV SCH ×2 (08:02→10:21)
--- NOTE | 2017-08-15 08:13 | PD.ORT.PN ---
Subjective Subjective Remarks No complaints. at bedside. Complains of right foot pain Objective Vitals Vital Signs Date Time Temp Pulse Resp B/P (MAP) Pulse Ox O2 Delivery O2 Flow Rate FiO2 08/15/17 03:42 96.7 77 17 91/58 (69) 94 08/14/17 23:32 96.8 79 17 92/60 (71) 94 08/14/17 19:15 97.2 89 18 110/62 (78) 97 08/14/17 17:03 95 Nasal Cannula 2.00 08/14/17 16:00 96.6 91 18 107/69 (82) 95 08/14/17 14:10 14 08/14/17 14:05 Room Air 08/14/17 13:15 87 14 122/84 (97) 96 Room Air 08/14/17 13:00 90 14 125/94 (104) 94 Room Air 08/14/17 12:45 79 14 115/76 (89) 95 Room Air 08/14/17 12:30 74 14 121/81 (94) 99 Simple Mask 8 08/14/17 12:15 97.8 82 14 108/74 (85) 99 Simple Mask 8 08/14/17 10:00 16 08/14/17 08:48 Room Air I/O 08/14/17 08/14/17 08/14/17 08/15/17 08/15/17 08/15/17 07:00 15:00 23:00 07:00 15:00 23:00 Intake Total 0 ml 1075 ml 865 ml 360 ml Output Total 10 ml Balance 0 ml 1065 ml 865 ml 360 ml Intake Oral 0 ml 360 ml 360 ml IV Total 1075 ml 505 ml Output Estimated Blood Loss 10 ml # Voids 2 4 2 # Bowel Movements 0 0 0 Result Diagram: 08/14/1740 08/14/17 0740 Objective Remarks Left ankle in external fixator. Minimal drainage. Sensation normal. Moderate swelling. Right foot. Mild discomfort. No swelling. X-ray right foot negative for fracture Assessment & Plan Assessment and Plan Bimalleolar left ankle fracture Contusion right foot. Surgery: Closed reduction, external fixator, left ankle PLAN: 's surgical stabilization delayed because of severe fracture blisters with swelling. External fixator in place. No obvious injury to the right foot with mild pain likely related to contusion/ strain. Ice and elevation. Discharge to home probably Friday. [place] for pain. Lovenox for 15 days. Return to the office in 10 days, x-ray on return and consider delayed stabilization at that time Tyron Keyes MD Aug 15, 2017 08:13
[2017-08-15] MEDS ORDERED: INFLUENZA VIRUS VACCINE (QUADRIVALENT) 0.5 ML SYR IM ONE (09:00)
[2017-08-15] MEDS ORDERED: PNEUMOCOCCAL POLYVALENT INJ 25 MCG/0.5 ML SYR IM ONE (09:00)
[2017-08-15] MEDS: SODIUM CHLORIDE 0.9% FLUSH 5 ML FLUSH IVF SCH (09:00)
--- NOTE | 2017-08-15 09:18 | HHI.PR ---
Subjective Remarks late note entry from 08/14/17 pt seen in the PACU post op stable , little sedated Objective Vitals Vital Signs Date Time Temp Pulse Resp B/P (MAP) Pulse Ox O2 Delivery O2 Flow Rate FiO2 08/15/17 03:42 96.7 77 17 91/58 (69) 94 08/14/17 23:32 96.8 79 17 92/60 (71) 94 08/14/17 19:15 97.2 89 18 110/62 (78) 97 08/14/17 17:03 95 Nasal Cannula 2.00 08/14/17 16:00 96.6 91 18 107/69 (82) 95 08/14/17 14:10 14 08/14/17 14:05 Room Air 08/14/17 13:15 87 14 122/84 (97) 96 Room Air 08/14/17 13:00 90 14 125/94 (104) 94 Room Air 08/14/17 12:45 79 14 115/76 (89) 95 Room Air 08/14/17 12:30 74 14 121/81 (94) 99 Simple Mask 8 08/14/17 12:15 97.8 82 14 108/74 (85) 99 Simple Mask 8 08/14/17 10:00 16 I/O 08/14/17 08/14/17 08/14/17 08/15/17 08/15/17 08/15/17 07:00 15:00 23:00 07:00 15:00 23:00 Intake Total 0 ml 1075 ml 865 ml 360 ml Output Total 10 ml Balance 0 ml 1065 ml 865 ml 360 ml Intake Oral 0 ml 360 ml 360 ml IV Total 1075 ml 505 ml Output Estimated Blood Loss 10 ml # Voids 2 4 2 # Bowel Movements 0 0 0 Result Diagram: 08/14/17 0740 08/14/17 0740 Objective Remarks GENERAL: This is a well-nourished, well-developed patient, in no apparent distress. SKIN: No rashes, warm and dry HEAD: Atraumatic. Normocephalic. EYES: Pupils equal round and reactive. ENT: Nose without bleeding, or drainage, Airway patent. NECK: Trachea midline. Supple CARDIOVASCULAR: Regular rate and rhythm without murmurs, gallops, or rubs. RESPIRATORY: Fair air entry bilaterally. No wheezes, rales, or rhonchi. GASTROINTESTINAL: Abdomen soft, non-tender, nondistended. Positive bowel sounds MUSCULOSKELETAL: Left ankle external fixator NEUROLOGICAL: Awake slightly sedated A/P Problem List: (1) Closed fracture of malleolus of left ankle ICD Code: S82.892A - Other fracture of left lower leg, initial encounter for closed fracture (2) Hypothyroidism ICD Code: E03.9 - Hypothyroidism, unspecified (3) GERD (gastroesophageal reflux disease) ICD Code: K21.9 - Gastro-esophageal reflux disease without esophagitis (4) Chronic back pain ICD Code: M54.9 - Dorsalgia, unspecified; G89.29 - Other chronic pain (5) History of DVT (deep vein thrombosis) ICD Code: Z86.718 - Personal history of other venous thrombosis and embolism Assessment and Plan Mrs. Ny is a very pleasant female with a history of postoperative lower extremity DVT, hypothyroidism, chronic lung disease (sounds like mild reactive airway disease vs mild interstitial lung disease), gastroesophageal reflux disease with possible stricture versus esophageal spasm being worked up as an outpatient (EGD to be done within next two weeks) who presented to the emergency room following a fall at home with medial and lateral left malleoli fractures identified in the emergency department (xray personally reviewed and agree with radiologist findings). She is being admitted for orthopedic surgical repair and [place] hospitalists were consulted to manage other medical conditions prior to surgery in the morning. Left ankle fracture - Left ankle x-ray shows medial and lateral left malleoli fractures identified in the emergency department (xray personally reviewed and agree with radiologist findings) - Orthopedic surgery consulted s/p surgical repair 08/14 - cont pain mangement Hypothyroidism - Home Synthroid restarted Chronic back pain - Home PRN Flexeril restarted Chronic constipation - Bowel regimen has been ordered - Colace 100 mg BID Chronic lung disease - mild reactive airway disease vs mild interstitial lung disease - uses albuterol inhaler PRN at home but hasn't used in a long time but is prone to developing pneumonia - PRN albuterol nebulizer to be used for wheezing/SOB - instructed patient she will need to use the incentive spirometer post- operatively religiously - she is in agreement GERD - Protonix 40 mg p.o. qd (in lieu of home Nexium) DVT prophylaxis : per Vika Hammond MD Aug 15, 2017 09:18
[2017-08-15] MEDS: MAGNESIUM HYDROXIDE SUSP 30 ML CUP PO PRN (09:28)
[2017-08-15] MEDS: DOCUSATE SODIUM 50 MG/SENNA 8.6 MG TAB PO SCH ×2 (09:28→22:17)
[2017-08-15] MEDS: CALCIUM/VITAMIN D 250 MG/125 U TAB PO SCH ×3 (09:28→17:38)
[2017-08-15] MEDS: PANTOPRAZOLE SOD 40 MG DELAYED RELEASE TAB PO SCH (09:29)
[2017-08-15] MEDS: ACETAMINOPHEN/HYDROcodone 325 MG/5 MG TAB PO PRN ×4 (09:30→22:18)
[2017-08-15] MEDS: MULTIVITAMINS/MINERALS THERAPEUTIC TAB PO SCH (09:30)
[2017-08-15 09:53] VITALS: O2SAT 96
--- NOTE | 2017-08-15 09:59 | HHI.PR ---
Subjective Remarks Follow-up left ankle fracture. The patient reports adequate pain control at this time. Denies chest pain, dyspnea. No nausea or vomiting. Objective Vitals Vital Signs Date Time Temp Pulse Resp B/P (MAP) Pulse Ox O2 Delivery O2 Flow Rate FiO2 08/15/17 09:53 96 Nasal Cannula 2.00 08/15/17 03:42 96.7 77 17 91/58 (69) 94 08/14/17 23:32 96.8 79 17 92/60 (71) 94 08/14/17 19:15 97.2 89 18 110/62 (78) 97 08/14/17 17:03 95 Nasal Cannula 2.00 08/14/17 16:00 96.6 91 18 107/69 (82) 95 08/14/17 14:10 14 08/14/17 14:05 Room Air 08/14/17 13:15 87 14 122/84 (97) 96 Room Air 08/14/17 13:00 90 14 125/94 (104) 94 Room Air 08/14/17 12:45 79 14 115/76 (89) 95 Room Air 08/14/17 12:30 74 14 121/81 (94) 99 Simple Mask 8 08/14/17 12:15 97.8 82 14 108/74 (85) 99 Simple Mask 8 08/14/17 10:00 16 I/O 08/14/17 08/14/17 08/14/17 08/15/17 08/15/17 08/15/17 07:00 15:00 23:00 07:00 15:00 23:00 Intake Total 0 ml 1075 ml 865 ml 360 ml Output Total 10 ml Balance 0 ml 1065 ml 865 ml 360 ml Intake Oral 0 ml 360 ml 360 ml IV Total 1075 ml 505 ml Output Estimated Blood Loss 10 ml # Voids 2 4 2 # Bowel Movements 0 0 0 Result Diagram: 08/14/17 0740 08/14/17 0740 Imaging Last Impressions Ankle X-Ray 08/14/17 0000 Signed Impressions: Service Date/Time: July 11:44 - CONCLUSION: Status post external fixation device placement which appears to be adequate in position for fixation of distal tibial and fibular fractures. Jerome Yang MD Foot X-Ray 08/13/17 190 Signed Impressions: Service Date/Time: Sunday, August 13, 2017 19:19 - CONCLUSION: No acute disease. Mina Burns MD Objective Remarks General: No acute distress. Heart: Regular rate and rhythm. No murmur. Lungs: Clear to auscultation bilaterally. No wheezes, rales, or rhonchi. Breathing is nonlabored. Abdomen: Soft, nontender, nondistended. Extremities: No right lower extremity edema. There is contusion on the lateral right foot. Left foot and ankle heavily bandaged with external fixator in place. Psych: Alert and oriented. Procedures 08/14/17 closed reduction, external fixation of left ankle fracture Urinary Catheter: No Vascular Central Line Catheter: No A/P Problem List: (1) Closed fracture of malleolus of left ankle ICD Code: S82.892A - Other fracture of left lower leg, initial encounter for closed fracture (2) Hypothyroidism ICD Code: E03.9 - Hypothyroidism, unspecified (3) GERD (gastroesophageal reflux disease) ICD Code: K21.9 - Gastro-esophageal reflux disease without esophagitis (4) Chronic back pain ICD Code: M54.9 - Dorsalgia, unspecified; G89.29 - Other chronic pain (5) History of DVT (deep vein thrombosis) ICD Code: Z86.718 - Personal history of other venous thrombosis and embolism Assessment and Plan 1. Left ankle fracture: Status post closed reduction with external fixation. Management per orthopedic surgery. Continue pain control, physical therapy, bowel regimen. 2. Hypothyroidism: Continue Synthroid. 3. Chronic back pain: Continue Flexeril as needed. 4. Chronic constipation: Continue bowel regimen. 5. Chronic lung disease: Mild reactive airway disease versus mild interstitial lung disease. Albuterol as needed. Continue incentive spirometry. 6. GERD: Protonix. 7. DVT prophylaxis: Lovenox. Bro Coleman MD Aug 15, 2017 09:59
[2017-08-15 12:00] VITALS: BP 113/76; PULSE 73; RESP 18; TEMP 97.5; O2SAT 96
--- NOTE | 2017-08-15 13:13 | HHI.FF ---
Face to Face Verification Diagnosis: (1) Closed fracture of malleolus of left ankle Physical Therapy Order: Evaluate and Treat I have seen patient Olivia Ny on 08/15/17. My clinical findings support the need for the requested home health care services because: High risk of falls I certify that my clinical findings support that this patient is homebound because: Unsteady gait/balance Bro Coleman MD Aug 15, 2017 13:13
[2017-08-15] MEDS ORDERED: WALKER WHEELS/F1 MIS (13:14)
[2017-08-15] MEDS ORDERED: BEDSIDE COMMODE1 MI1 (13:14)
[2017-08-15 16:00] VITALS: BP 107/68; PULSE 70; RESP 18; TEMP 98.1; O2SAT 97
[2017-08-15 20:00] VITALS: BP 116/74; PULSE 86; RESP 17; TEMP 96.9; O2SAT 99
[2017-08-16] VITALS: BP 112/73; PULSE 96; RESP 16; TEMP 97.1; O2SAT 95
[2017-08-16] MEDS: ENOXAPARIN SODIUM 40 MG/0.4 ML SYRINGE SQ SCH (00:11)
[2017-08-16] MEDS: LEVOTHYROXINE SODIUM 125 MCG TAB PO SCH (06:15)
[2017-08-16] MEDS: ACYCLOVIR 200 MG CAP PO SCH ×3 (06:15→12:45)
[2017-08-16] MEDS: ACETAMINOPHEN/HYDROcodone 325 MG/5 MG TAB PO PRN (06:16)
--- NOTE | 2017-08-16 07:11 | PD.ORT.PN ---
Subjective Subjective Remarks Awake and alert with many questions Objective Vitals Vital Signs Date Time Temp Pulse Resp B/P (MAP) Pulse Ox O2 Delivery O2 Flow Rate FiO2 08/16/17 00:00 97.1 96 16 112/73 (86) 95 08/15/17 20:00 96.9 86 17 116/74 (88) 99 08/15/17 16:00 98.1 70 18 107/68 (81) 97 08/15/17 12:00 97.5 73 18 113/76 (88) 96 08/15/17 09:53 96 Nasal Cannula 2.00 08/15/17 09:53 Room Air 08/15/17 08:00 98.3 72 18 109/70 (83) 97 I/O 08/15/17 08/15/17 08/15/17 08/16/17 08/16/17 08/16/17 07:00 15:00 23:00 07:00 15:00 23:00 Intake Total 360 ml 700 ml 960 ml Balance 360 ml 700 ml 960 ml Intake Oral 360 ml 600 ml 960 ml IV Total 100 ml # Voids 2 3 3 # Bowel Movements 0 0 1 Result Diagram: 08/14/1740 08/14/1740 Objective Remarks Left ankle in external fixator. Minimal drainage. Dressings taken down showing fracture blisters over medial portion of ankle. Swelling of +2. Sensation normal. Moderate swelling. Right foot. Mild discomfort. No swelling. X-ray right foot negative for fracture Assessment & Plan Assessment and Plan Bimalleolar left ankle fracture Contusion right foot. Surgery: Closed reduction, external fixator, left ankle PLAN: 's surgical stabilization delayed because of severe fracture blisters with swelling. External fixator in place. No obvious injury to the right foot with mild pain likely related to contusion/ strain. Ice and elevation. Discharge to home today with home health care. Pin care twice a day and elevation to decrease swelling [place] for pain. Lovenox for 15 days. Return to the office in 10 days, x-ray on return and consider delayed stabilization at that time Teja Lopez Jr. Aug 16, 2017 07:11
[2017-08-16 07:47] VITALS: BP 128/94; PULSE 99; RESP 19; TEMP 97; O2SAT 97
[2017-08-16] MEDS: SODIUM CHLORIDE 0.9% FLUSH 5 ML FLUSH IVF SCH (09:00)
--- NOTE | 2017-08-16 10:10 | HHI.DS ---
Discharge Summary Admission Date Aug 13, 2017 at 20:36 Discharge Date: Aug 16, 2017 Admitting Diagnosis left ankle fracture (1) Closed fracture of malleolus of left ankle ICD Code: S82.892A - Other fracture of left lower leg, initial encounter for closed fracture (2) Hypothyroidism ICD Code: E03.9 - Hypothyroidism, unspecified (3) GERD (gastroesophageal reflux disease) ICD Code: K21.9 - Gastro-esophageal reflux disease without esophagitis (4) Chronic back pain ICD Code: M54.9 - Dorsalgia, unspecified; G89.29 - Other chronic pain (5) History of DVT (deep vein thrombosis) ICD Code: Z86.718 - Personal history of other venous thrombosis and embolism Procedures 08/14/17 closed reduction, external fixation of left ankle fracture Brief History - From Admission History of present illness from the admitting team. Mrs. Ny is a very pleasant female with a history of postoperative lower extremity DVT, hypothyroidism, chronic lung disease (sounds like mild reactive airway disease vs mild interstitial lung disease), gastroesophageal reflux disease with possible stricture versus esophageal spasm being worked up as an outpatient (EGD to be done within next two weeks) who presented to the emergency room following a fall at home with medial and lateral left malleoli fractures identified in the emergency department (xray personally reviewed and agree with radiologist findings). She is being admitted for orthopedic surgical repair and [facility] were consulted to manage other medical conditions prior to surgery in the morning. Patient states that she was at home and was walking down a step and missed her footing and fell with resulting severe left ankle pain, the dictations, and inability to bear weight. Her pain is currently described as sharp and worse with movement. It is rated 7 out of 10 but she is currently undergoing left lower extremity splinting during my visit. She does report pain relief with when necessary morphine. Denies any recent fever, chills, chest pain, shortness of breath, cough, cold symptoms, nausea, vomiting, or diarrhea. She does report chronic constipation and states that she also hurt her right foot during a fall. X-ray of the right foot is negative. CBC/BMP: 08/14/17 0740 08/14/17 0740 Significant Findings Laboratory Tests Test 08/13/17 20:00 08/14/17 07:40 White Blood Count 12.3 TH/MM3 (4.0-11.0) Neutrophils (%) (Auto) 75.9 % (16.0-70.0) Neutrophils # (Auto) 9.3 TH/MM3 (1.8-7.7) Calcium Level 8.3 MG/DL (8.5-10.1) 8.4 MG/DL (8.5-10.1) Estimat Glomerular Filtration Rate 70 ML/MIN (>89) 80 ML/MIN (>89) Imaging Last Impressions Ankle X-Ray 08/14/17 0000 Signed Impressions: Service Date/Time: July 11:44 - CONCLUSION: Status post external fixation device placement which appears to be adequate in position for fixation of distal tibial and fibular fractures. Jerome Yang MD Foot X-Ray 08/13/17 1902 Signed Impressions: Service Date/Time: Sunday, August 13, 2017 19:19 - CONCLUSION: No acute disease. Mina Burns MD PE at Discharge General: No acute distress. Heart: Regular rate and rhythm. No murmur. Lungs: Clear to auscultation bilaterally. No wheezes, rales, or rhonchi. Breathing is nonlabored. Abdomen: Soft, nontender, nondistended. Extremities: No right lower extremity edema. There is contusion on the lateral right foot. Left foot and ankle heavily bandaged with external fixator in place. Psych: Alert and oriented. Pt update on day of discharge Patient reports she is feeling much better. Pain is controlled. Anxious to go home. Hospital Course 57-year-old female admitted with left bimalleolar fracture secondary to mechanical fall. Patient was followed by orthopedic surgery and underwent external fixation. Surgical stabilization delayed because of lower extremity swelling. The patient is discharged home with home health care and physical therapy. She will follow-up at the orthopedics clinic in 10 days for reevaluation with x-rays. Other conditions treated include Hypothyroidism: Continue Synthroid. Chronic back pain: Continue Flexeril as needed. Chronic constipation: Continue bowel regimen. Chronic lung disease: Mild reactive airway disease versus mild interstitial lung disease. Albuterol as needed. Continue incentive spirometry. GERD: Protonix. Pt Condition on Discharge: Good Discharge Disposition: Disch w/ Home Health Serv Discharge Time: <= 30 minutes Discharge Instructions DIET: Follow Instructions for: As Tolerated, No Restrictions Activities you can perform: Non Weight Bearing Activities to Avoid: Shower Follow up Referrals: Orthopedics - 1 Week with Tyron Keyes MD New Medications: Bedside Commode (Bedside Commode) 1 Mis Mis EA .ROUTE DIRECTED, #1 Walker with Front Wheels (Walker with Front Wheels) 1 Mis Mis EA .ROUTE DIRECTED, #1 0 Refills Enoxaparin Inj (Lovenox Inj) 40 Mg/0.4 Ml Syr 40 MG SQ Q24H for Prevent Blood Clot, #15 INJECTION Hydrocodone/Acetaminophen (Hydrocodone-Acetamin 5-325 mg) 5 Mg-325 Mg Tablet 1 TAB PO Q4H PRN for PAIN, #40 TAB Continued Medications: Acyclovir (Acyclovir) 200 Mg Cap 500 MG PO 5 TIMES A DAY for Mgmt Viral Infection, CAP 0 Refills Cyclobenzaprine (Flexeril) 10 Mg Tab 10 MG PO TID PRN for BACK PAIN, #90 TAB 0 Refills Levothyroxine (Synthroid) 125 Mcg Tab 125 MCG PO DAILY for Thyroid, #30 TAB 0 Refills Hope Batista MD Aug 16, 2017 10:10
[2017-08-16] MEDS: PANTOPRAZOLE SOD 40 MG DELAYED RELEASE TAB PO SCH (10:18)
[2017-08-16] MEDS: CALCIUM/VITAMIN D 250 MG/125 U TAB PO SCH ×2 (10:18→12:45)
[2017-08-16] MEDS: DOCUSATE SODIUM 50 MG/SENNA 8.6 MG TAB PO SCH (10:18)
[2017-08-16] MEDS: MULTIVITAMINS/MINERALS THERAPEUTIC TAB PO SCH (10:18)
[2017-08-16] MEDS: MAGNESIUM HYDROXIDE SUSP 30 ML CUP PO PRN (10:25)
[2017-08-16 12:00] VITALS: BP 128/73; PULSE 78; RESP 18; TEMP 96.7; O2SAT 95
== END 2017-08-16 14:21 | disposition home health service (06) | DRG 494 ==
LOC: NEPC 18:50 → NEDA 20:13 → OBSVTOIN 20:36 → N06A 21:37
PROVIDERS: ADMIT Family Medicine; ATTEND Family Medicine
PROC: 0QSH35Z Reposition Left Tibia with External Fixation Device, Percutaneous Approach (ICD-10-PCS; principal; 2017-08-14 10:45)
DX: S82.842A Displaced bimalleolar fracture of left lower leg, initial encounter for closed fracture (principal); J98.4 Other disorders of lung; E03.9 Hypothyroidism, unspecified; K21.9 Gastro-esophageal reflux disease without esophagitis; K59.09 Other constipation; G89.29 Other chronic pain; M54.9 Dorsalgia, unspecified; W10.9XXA Fall (on) (from) unspecified stairs and steps, initial encounter; Z72.0 Tobacco use; Z23 Encounter for immunization; Y92.009 Unspecified place in unspecified non-institutional (private) residence as the place of occurrence of the external cause; Z86.718 Personal history of other venous thrombosis and embolism
CPT/HCPCS: 73600; 73630; 76000; 80048; 80053; 85025; 85610; 85730; 90471; 90472; 90686; 90732; 93005; 94150; C1713; G0008; G0009; J0131; J0690; J1100; J1580; J1650; J2250; J2270; J2370; J2405; J2710; J3010; J7120; J8501; Q2038

== ENCOUNTER 2017-08-26 05:54 | Inpatient (IN) | payer OTHER ==
[~2017-08-26] VITALS: Ht 167.6 cm; Wt 77.0 kg
[~2017-08-26 05:54] MED LIST: ACYC200C66 PO; BEDSIDE COMMODE1 MI1; CYCL10TA PO; ENOX40P SQ; HYDR-3516 PO; LEVO.125 PO; WALKER WHEELS/F1 MIS
[2017-08-26] MEDS ORDERED: LACTATED RINGER'S 1000 ML IV PRN (07:00)
[2017-08-26] MEDS ORDERED: POVIDONE IODINE 5% (ANTISEPSIS KIT) 4 APPLICATIONS EACH NARE PRN (07:00)
[2017-08-26] MEDS ORDERED: POVIDONE IODINE 7.5% SCRUB 118 ML BOTTLE TOPICAL SCH (07:00)
[2017-08-26] MEDS ORDERED: METOPROLOL TARTRATE 25 MG TAB PO PRN (07:00)
[2017-08-26] MEDS ORDERED: SODIUM CHLORID 0.9% 500 ML IV PRN (07:00)
[2017-08-26] MEDS ORDERED: CHLORHEXIDINE GLUCONATE 2 % 1 PACK (2 CLOTHS) TOPICAL PRN (07:00)
[2017-08-26] MEDS ORDERED: ceFAZolin 2 GM PREMIX 50 ML IV SCH (07:00)
[2017-08-26] MEDS ORDERED: TRAM50TA PO (07:18)
[2017-08-26] MEDS ORDERED: ACYC200C66 PO (07:18)
[2017-08-26] MEDS ORDERED: ALPR.25 PO (07:18)
[2017-08-26] MEDS ORDERED: APREPITANT 40 MG CAP PO ONE (07:30)
[2017-08-26] MEDS ORDERED: GENTAMICIN SULFATE 80 MG/2 ML VIAL ONE (08:45)
[2017-08-26] MEDS ORDERED: VANCOMYCIN HCL 1000 MG VIAL ONE (09:50)
[2017-08-26] MEDS ORDERED: CYCLOBENZAPRINE HCL 10 MG TAB PO PRN (11:45)
[2017-08-26] MEDS ORDERED: SODIUM CHLORIDE 0.9% FLUSH 5 ML FLUSH IVF PRN (11:45)
[2017-08-26] MEDS ORDERED: ALPRAZolam 0.25 MG TAB PO PRN (11:45)
[2017-08-26] MEDS ORDERED: diphenhydrAMINE HCL 25 MG CAP PO PRN (11:45)
[2017-08-26] MEDS ORDERED: MORPHINE SULFATE 30 MG/30 ML PCA IV SCH (11:45)
[2017-08-26] MEDS ORDERED: MORPHINE SULFATE 8 MG/ML INJ IV PUSH PRN (11:45)
[2017-08-26] MEDS ORDERED: NALOXONE HCL 0.4 MG/ML AMP IV PUSH PRN (11:45)
[2017-08-26] MEDS ORDERED: Post-op Orders (for Pharmacy) MISC XX ONE (11:48)
[2017-08-26] MEDS ORDERED: DO NOT ADM ANY ANTICOAGULANT DRUGS PRN (11:48)
--- NOTE | 2017-08-26 11:49 | PD.OP ---
cc: Tyron Keyes. Operative Report Date of Surgery: Aug 26, 2017 Preoperative Diagnosis: Unstable left by malleolar fracture, dislocation. Status post external fixation left ankle fracture. Full-thickness skin loss medial ankle Postoperative Diagnosis: Same Procedure: Removal of complex multiplane external fixator, left ankle. Open treatment into fixation left ankle bimalleolar fracture. Nucel amniotic stem cell skin graft medial ankle Anesthesia: Gen. Surgeon: Tyron Keyes Maintenance Technician(s): SANDRA Paulson Operation and Findings: EBL: 50 cc INDICATION: This patient is a 57-year-old female who sustained a fracture dislocation of the left ankle approximately 2 weeks ago. She is brought to the operating room 12 days ago and was found to have a large fracture blister with significant swelling the ankle. This is very unstable fracture. She was reduced and held with a multiplanar external fixator. She was seen yesterday it was felt that she was ready for surgery. It was recognized that she had an area of full-thickness skin loss medial and proximal to the ankle in the middle of the area of the large fracture blister. She now presents for surgical treatment. NOTE: Lisy Paulson PA-C was present for the entire surgical procedure as my cutting table operator first. In my medical opinion her skill and care was necessary for the proper management of this patient. PROCEDURE: The patient brought to the operating room and anesthetized in the supine position. The left leg was preliminarily scrubbed and temporarily draped. Antibiotics were given within an one hour time window and a timeout was done. The external fixator was removed removing the 2 tibial pins and the metatarsal pin. The trans-calcaneal pin was cut and and cleaned again and then removed in a retrograde fashion. The left leg was scrubbed with alcohol followed by Hibiclens followed ChloraPrep and draped sterilely for final draping. The lateral side was approached. After exsanguination the tourniquet was inflated to 250 mmHg. A longitudinal incision was made. The fracture was exposed. Multiple clamps used to hold this in proper position. A proper length ITS locking plate was positioned and held. Multiple screws were placed as well as a lag screw. There was a large fragment anteriorly as a portion of the fibula which was keyed into proper position. This is an unstable fragment that was attached to the anterior portion of the syndesmosis. We used 2 very small K wires which were positioned and then bent. A #2 fiber wire was placed around end of the plate and through an open screw hole using a modified tension band type technique to hold this in proper position. The fracture was reduced anatomically. Overall alignment was satisfactory. The wound was closed in layers with 2-0 Vicryl 3-0 Vicryl and 3-0 nylon mattress sutures. A medial incision was made. A clamp was used to hold the medial malleolus and anatomic alignment. A cannulated screw system was utilized. 2 pins were placed in good fashion and position. There measured carefully. They were drilled and the proper length screws were advanced across the wire across the fracture. The fracture was reduced anatomically. The wound was closed with 3- 0 nylon in a mattress fashion. Is an area of full-thickness skin loss measuring approximately 1.2 x 0.9 cm. This was sharply debrided the wound was irrigated copiously. We then opened a 3 cm x 2 cm amnionic soft tissue graft. Careful this is placed directly over the exposed area of subcutaneous tissue. Sterile dressings were applied. Intraoperative imaging showed anatomic reduction. Alignment was satisfactory. A posterior splint was fitted and applied. The patient was awakened and taken to recovery room satisfactory condition. The sponge count and needle count and sponge counts were all correct FINDINGS: This is an unstable ankle fracture now 2 weeks out from the original injury. The final alignment and reduction was very satisfactory. The alignment was anatomic. No complication was appreciated. Skin grafting was placed of the exposed area of the medial soft tissue injury which also appeared satisfactory. Tyron Keyes MD Aug 26, 2017 11:49
[2017-08-26] MEDS ORDERED: TRAM50 PO (11:52)
[2017-08-26] MEDS ORDERED: ASPI325T33 PO (11:52)
[2017-08-26] MEDS ORDERED: *MEPERIDINE 25 MG INJ VIAL PERIprocedural Use ONLY ONE (11:52)
[2017-08-26] MEDS ORDERED: MIDAZOLAM HCL 2 MG/2 ML VIAL IV ONE (12:00)
[2017-08-26] MEDS ORDERED: *morphine SULFATE 8 MG/ML PERIprocedure ONLY ONE ×3 (12:00→12:33)
[2017-08-26] MEDS ORDERED: PHENYLEPH/NS 1000 MCG/10 ML SYR IV ONE (12:00)
[2017-08-26] MEDS ORDERED: ONDANSETRON HCL 4 MG/2 ML VIAL IV ONE (12:00)
[2017-08-26] MEDS ORDERED: LACTATED RINGER'S 1000 ML INJ 1,000 ML IV ONE (12:00)
[2017-08-26] MEDS ORDERED: DEXAMETHASONE SOD PHOS 4 MG/ML VIAL IV ONE (12:00)
[2017-08-26] MEDS ORDERED: PROPOFOL 200 MG/20 ML AMP IV ONE (12:00)
[2017-08-26] MEDS ORDERED: LIDOCAINE HCL 1% PF 5 ML SYRINGE OTHER ONE (12:00)
[2017-08-26] MEDS: LACTATED RINGER'S 1000 ML INJ 1,000 ML IV SCH ×2 (12:20→22:48)
[2017-08-26] MEDS ORDERED: DIMETHICONE/OXYBENZONE/PADMIATE LIP BALM 4.25 GM TOPICAL ONE (12:34)
[2017-08-26 14:00] VITALS: BP 121/80; PULSE 90; RESP 16; TEMP 97; O2SAT 92
[2017-08-26] MEDS: ASPIRIN EC 325 MG TABEC PO SCH ×2 (14:00→22:45)
[2017-08-26] MEDS: PCA - TOTAL MG MORPHINE DELIVERED PER SHIFT SCH ×2 (14:00→22:00)
[2017-08-26] MEDS: ONDANSETRON HCL 4 MG/2 ML VIAL IVP PRN ×2 (14:23→18:34)
[2017-08-26] MEDS: CALCIUM/VITAMIN D 250 MG/125 U TAB PO SCH ×2 (14:23→17:18)
[2017-08-26 16:00] VITALS: BP 121/83; PULSE 79; RESP 16; TEMP 96.4; O2SAT 95
--- NOTE | 2017-08-26 17:20 | RADRPT ---
EXAM DATE/TIME: 08/26/2017 11:12 [facility] COMPARISON: No previous studies available for comparison. INDICATIONS : ORIF of the left ankle with removal of the external fixator. MEDICAL HISTORY : Asthma. SURGICAL HISTORY : Hysterectomy. ENCOUNTER: Initial ACUITY: 1 day PAIN SCORE: Non-responsive. LOCATION: Left ankle. FINDINGS: Examination reveals plate and screw fixation of the distal fibula and fixation of the medial malleolu s with a pair of partially threaded screws. The hardware is intact. Alignment is anatomic. CONCLUSION: Satisfactory operative appearance Mina Lake MD on August 26, 2017 at 17:18 Board Certified Radiologist. This report was verified electronically.
[2017-08-26 19:43] VITALS: BP 123/83; PULSE 76; RESP 18; TEMP 96.7; O2SAT 94
[2017-08-26] MEDS ORDERED: SENNOSIDES 8.6 MG TAB PO PRN (20:15)
[2017-08-26] MEDS ORDERED: CALCIUM CARBONATE 500 MG CHEWABLE TAB PO PRN (21:00)
[2017-08-26] MEDS: SODIUM CHLORIDE 0.9% FLUSH 5 ML FLUSH IVF SCH (21:00)
[2017-08-26] MEDS ORDERED: PROMETHAZINE HCL 25 MG TAB PO PRN (21:15)
--- NOTE | 2017-08-26 21:45 | HHI.DCPOC ---
Discharge Care Plan Diagnosis: (1) Bimalleolar fracture of left ankle Your Health Problems Are: Incision/Drains Swelling Goals to Promote Your Health * To prevent worsening of your condition and complications * To maintain your health at the optimal level Directions to Meet Your Goals Take your medications as prescribed Follow your dietary instruction Follow activity as directed Keep your appointments as scheduled Take your immunizations and boosters as scheduled If your symptoms worsen call your PCP, if no PCP go to Urgent Care Center or Emergency Room Smoking is Dangerous to Your Health. Avoid second hand smoke Call the 24-hour hour crisis hotline for domestic abuse at [facility] Aug 26, 2017 21:45
--- NOTE | 2017-08-26 21:46 | HHI.DS ---
Discharge Summary Admission Date Aug 26, 2017 at 11:14 Discharge Date: Aug 27, 2017 Admitting Diagnosis see below Diagnosis: (1) Bimalleolar fracture of left ankle Diagnosis: Principal ICD Codes: S82.842A - Displaced bimalleolar fracture of left lower leg, initial encounter for closed fracture Procedures Removal of External Fixator left ankle, Open treatment internal fixation left ankle fracture, I&D left ankle with skin graft. Brief History This is a 57 year old female patient.. fall fracture 2 weeks ago. Ex fix. Staged removal and ORIF. Hospital Course pod#1/ NonWBing Left ankle. Tramadol 4hours. Pt Condition on Discharge: Stable Discharge Disposition: Discharge Home Discharge Instructions Diet Instructions: As Tolerated, No Restrictions Activities You Can Perform: Non Weight Bearing Activities to Avoid: Strenuous Activity Additional Activity Instruc.: NonWBing Left LE. Use walker or crutches. New Medications: Aspirin DR (Aspirin EC) 325 Mg Tabdr 325 MG PO BID for Prevent Blood Clot for 14 Days, #28 TAB Tramadol (Ultram) 50 Mg Tab 50 MG PO Q4H PRN for pain, #50 TAB Continued Medications: Acyclovir (Acyclovir) 200 Mg Cap 250 MG PO 5 TIMES A DAY PRN for fever blister, CAP 0 Refills Alprazolam (Xanax) 0.25 Mg Tab 0.25 MG PO HS PRN for SLEEP, TAB 0 Refills Cyclobenzaprine (Flexeril) 10 Mg Tab 10 MG PO TID PRN for BACK PAIN, #90 TAB 0 Refills Hydrocodone/Acetaminophen (Hydrocodone-Acetamin 5-325 mg) 5 Mg-325 Mg Tablet 1 TAB PO Q4H PRN for PAIN, #40 TAB Levothyroxine (Synthroid) 125 Mcg Tab 125 MCG PO DAILY for Thyroid, #30 TAB 0 Refills Tramadol (Tramadol) 50 Mg Tab 50 MG PO Q4H PRN for PAIN, TAB 0 Refills Discontinued Medications: Enoxaparin Inj (Lovenox Inj) 40 Mg/0.4 Ml Syr 40 MG SQ Q24H for Prevent Blood Clot, #15 INJECTION Maura Ho Aug 26, 2017 21:46
[2017-08-26] MEDS: MAGNESIUM HYDROXIDE SUSP 30 ML CUP PO PRN (22:45)
[2017-08-26] MEDS: DOCUSATE SODIUM 50 MG/SENNA 8.6 MG TAB PO SCH (22:45)
[2017-08-26 23:00] VITALS: BP 111/71; PULSE 73; RESP 17; TEMP 97.1; O2SAT 95
[2017-08-27 04:35] VITALS: BP 103/63; PULSE 74; RESP 17; TEMP 97.8; O2SAT 98
[2017-08-27] MEDS: LACTATED RINGER'S 1000 ML INJ 1,000 ML IV SCH (05:32)
[2017-08-27] MEDS: PCA - TOTAL MG MORPHINE DELIVERED PER SHIFT SCH (05:32)
[2017-08-27 08:00] VITALS: BP 134/84; PULSE 85; RESP 19; TEMP 97.2; O2SAT 100
[2017-08-27] MEDS: CALCIUM/VITAMIN D 250 MG/125 U TAB PO SCH ×2 (08:10→12:14)
[2017-08-27] MEDS: DOCUSATE SODIUM 50 MG/SENNA 8.6 MG TAB PO SCH (08:10)
[2017-08-27] MEDS: ASPIRIN EC 325 MG TABEC PO SCH (08:10)
[2017-08-27] MEDS: traMADol HCL 50 MG TAB PO PRN ×2 (08:11→12:13)
[2017-08-27] MEDS: MAGNESIUM HYDROXIDE SUSP 30 ML CUP PO PRN (08:11)
[2017-08-27] MEDS ORDERED: SOD PHOSPHATE/SOD BIPHOSPHATE (ADULT) ENEMA 133ML RECTAL ONE (09:00)
[2017-08-27] MEDS ORDERED: MULTIVITAMINS/MINERALS THERAPEUTIC TAB PO SCH (09:00)
[2017-08-27] MEDS: SODIUM CHLORIDE 0.9% FLUSH 5 ML FLUSH IVF SCH (09:00)
[2017-08-27 12:00] VITALS: BP 130/75; PULSE 80; RESP 18; TEMP 97.6; O2SAT 100
--- NOTE | 2017-08-27 13:18 | PD.ORT.PN ---
Subjective Subjective Remarks Doing well. Her pain is well controlled with occasional spasms. Her appetite is good. She is urinating well. No complaints. She is eager to get home. Denies chest pain or shortness or breath. Objective Vitals Vital Signs Date Time Temp Pulse Resp B/P (MAP) Pulse Ox O2 Delivery O2 Flow Rate FiO2 08/27/17 08:00 97.2 85 19 134/84 (101) 100 08/27/17 05:32 16 08/27/17 04:35 97.8 74 17 103/63 (76) 98 08/26/17 23:00 97.1 73 17 111/71 (84) 95 08/26/17 22:00 16 08/26/17 19:43 96.7 76 18 123/83 (96) 94 08/26/17 16:00 96.4 79 16 121/83 (96) 95 08/26/17 14:00 97.0 90 16 121/80 (94) 92 08/26/17 13:23 16 I/O 08/26/17 08/26/17 08/26/17 08/27/17 08/27/17 08/27/17 07:00 15:00 23:00 07:00 15:00 23:00 Intake Total 1411 ml 1189 ml 1253 ml Output Total 5 ml 300 ml Balance 1406 ml 889 ml 1253 ml Intake Oral 240 ml 480 ml IV Total 211 ml 949 ml 773 ml Other 1200 ml Output Urine Total 300 ml Estimated Blood Loss 5 ml # Voids 1 3 4 # Bowel Movements 0 0 1 Procedures Removal of External Fixator left ankle, Open treatment internal fixation left ankle fracture, I&D left ankle with skin graft. Objective Remarks Sitting up in bed NAD VSS at bedside LLE Dressing/splint intact, no obvious drainage, mild swelling toes Good sensation distal, wiggles toes freely, Cap refill less than 2 secs great toe Assessment & Plan Ortho Post Op Day #: 1 Problem List: (1) Bimalleolar fracture of left ankle ICD Codes: S82.842A - Displaced bimalleolar fracture of left lower leg, initial encounter for closed fracture Assessment and Plan pod#1 s/p Removal ExFix left ankle, ORIF left ankle, I&D left ankle with skin graft. Ok to d/c home today. Leave splint intact. Do not change. Keep dry. Tramadol 50mg for pain. Ice and elevate ankle 30 mins 2-3 times daily minimum. F/U in 10-14 days. Has DME at home. No C needed. Maura Ho Aug 27, 2017 13:18
== END 2017-08-27 13:50 | disposition home or self-care (01) | DRG 494 ==
LOC: HSDC 05:54 → HSDI 11:14 → N06B 13:26
PROVIDERS: ADMIT Orthopaedic Surgery Orthopaedic Surgery of the Spine; ATTEND Orthopaedic Surgery Orthopaedic Surgery of the Spine
PROC: 0QPH05Z Removal of External Fixation Device from Left Tibia, Open Approach (ICD-10-PCS; 2017-08-26)
PROC: 0QSH04Z Reposition Left Tibia with Internal Fixation Device, Open Approach (ICD-10-PCS; 2017-08-26)
PROC: 0HDLXZZ Extraction of Left Lower Leg Skin, External Approach (ICD-10-PCS; 2017-08-26)
PROC: 0QPKX5Z Removal of External Fixation Device from Left Fibula, External Approach (ICD-10-PCS; principal; 2017-08-26 09:00)
PROC: 0QSK04Z Reposition Left Fibula with Internal Fixation Device, Open Approach (ICD-10-PCS; 2017-08-26 09:00)
DX: S82.842D Displaced bimalleolar fracture of left lower leg, subsequent encounter for closed fracture with routine healing (principal); X58.XXXD Exposure to other specified factors, subsequent encounter
CPT/HCPCS: 73600; 76000; 86850; 86900; 86901; 94150; C1713; J0690; J1100; J1580; J2175; J2250; J2270; J2370; J2405; J3010; J3370; J7120; J8501; Q0169; Q4160